=== PATIENT | male | born 1975 | race Asian ===

== ENCOUNTER 2017-10-31 20:41 | Emergency (ER) | payer OTHER ==
[~2017-10-31] VITALS: Ht 243.8 cm; Wt 81.6 kg
[2017-10-31] MEDS ORDERED: BUPROPION HCL150 M3 ORAL (20:55)
[2017-10-31] MEDS ORDERED: LORAZEPAM1 MG ORAL (20:55)
[2017-10-31] MEDS ORDERED: NORCO 5-325 TA1 EACH ORAL (20:55)
[2017-10-31] MEDS ORDERED: GABAPENTIN800 MG ORAL (20:55)
[2017-10-31] MEDS ORDERED: IBUPROFEN600 MG ORAL (20:55)
[2017-10-31] MEDS ORDERED: Bacitracin Oint UD TOPIC ONE (21:15)
[2017-10-31] MEDS ORDERED: BACITRACIN15 GM TOPIC (21:20)
[2017-10-31 21:31] VITALS: BP 123/79
[2017-10-31] MEDS ORDERED: TRIAMCINOLONE A60 M1 TP (21:33)
[2017-10-31 21:42] VITALS: BP 123/79
--- NOTE | 2017-10-31 22:26 | Emergency Room Report ---
History of Present Illness General Chief Complaint: Pain Source: Patient Present Illness HPI 42-year-old male presents ED for evaluation of blister. Patient states there is a large blister on his left foot. Has been there for many days. States that he "walks a lot". States that he walked here from [place]. Patient states that he could not get a ride to this area. States that he doesn't place to stay. Denies any fevers or chills. Denies any drainage. Pain is dull, 8 out of 10, nonradiating, worse with walking. No other aggravating relieving factors. Denies any other associated symptoms Allergies: Coded Allergies: CHLORPROMAZINE (Verified Allergy, Unknown, 10/31/17) HALOPERIDOL (Verified Allergy, Unknown, 10/31/17) Patient History Past Medical History: psych hx Past Surgical History: none Pertinent Family History: none Social History: Denies: smoking, alcohol use, drug use Immunizations: UTD Reviewed Nursing Documentation: PMH: Agreed; PSxH: Agreed Nursing Documentation-PMH Past Medical History: No History, Except For History Of Psychiatric Problem: Yes - bipolar, ADHD, anxiety depression Review of Systems All Other Systems: negative except mentioned in HPI Physical Exam Vital Signs Date Time Temp Pulse Resp B/P (MAP) Pulse Ox O2 Delivery O2 Flow Rate FiO2 10/31/17 20:48 98.3 103 18 123/79 98 Room Air 98.2 Sp02 EP Interpretation: reviewed, normal General Appearance: no apparent distress, alert, GCS 15, non-toxic Head: normocephalic, atraumatic Eyes: bilateral eye normal inspection, bilateral eye PERRL ENT: hearing grossly normal, normal pharynx, no angioedema, normal voice Neck: full range of motion, supple/symm/no masses Respiratory: chest non-tender, lungs clear, normal breath sounds, speaking full sentences Cardiovascular #1: regular rate, rhythm, no edema Cardiovascular #2: 2+ carotid (R), 2+ carotid (L), 2+ radial (R), 2+ radial (L) , 2+ dorsalis pedis (R), 2+ dorsalis pedis (L) Gastrointestinal: normal bowel sounds, non tender, soft, non-distended, no guarding, no rebound Rectal: deferred Genitourinary: normal inspection, no CVA tenderness Musculoskeletal: back normal, gait/station normal, normal range of motion, non- tender Neurologic: alert, oriented x3, responsive, motor strength/tone normal, sensory intact, speech normal Psychiatric: judgement/insight normal, memory normal, mood/affect normal, no suicidal/homicidal ideation Reflexes: 3+ bicep (R), 3+ bicep (L), 3+ tricep (R), 3+ tricep (L), 3+ knee (R) , 3+ knee (L) Skin: normal color, no rash, warm/dry, well hydrated, other - 1x1cm blister to base of L foot. no erythema/drainage Lymphatic: no adenopathy Medical Decision Making Diagnostic Impression: Primary Impression: Blister of foot Qualified Codes: S90.822A - Blister (nonthermal), left foot, initial encounter ER Course Hospital Course 42 yo M presents with blister to bottom of foot Differential diagnoses include: Cellulitis, dermatitis, insect bite, abscess Clinical course Patient placed on stretcher. After initial history, physical exam reveals a male in no acute distress. On exam there is a 1 x 1 cm blister to the bottom of the left foot. No erythema or discharge. No skin breakdown. Wound irrigated. Bacitracin and padded dressing applied. Patient safe for discharge. patient states he has a place to stay Diagnosis - blister of foot stable and discharged to home with prescription for bacitracin. Instructed to followup with PMD. Instructed return to ED if symptoms recur or worsen Last Vital Signs Date Time Temp Pulse Resp B/P (MAP) Pulse Ox O2 Delivery O2 Flow Rate FiO2 10/31/17 21:42 98.3 91 16 123/79 99 Room Air Status: improved Disposition: HOME, SELF-CARE Condition: Stable Scripts Triamcinolone Acetonide (TRIAMCINOLONE ACETONIDE) 60 Ml Lotion 60 ML TP BID, #60 ML Prov: Lenard Tyler MD 10/31/17 Bacitracin (Bacitracin) 28.4 Gm Oint...g. 1 APPLIC TOPIC THREE TIMES A DAY, #28.4 GM Prov: Lenard Tyler MD 10/31/17 Referrals: [facility]ERR[facility] (PCP) Patient Instructions: BlLenard Fuentes MD Oct 31, 2017 22:26
== END 2017-10-31 21:40 | disposition home or self-care (01) ==
LOC: EMR 21:15
DX: S90.822A Blister (nonthermal), left foot, initial encounter (principal); X58.XXXA Exposure to other specified factors, initial encounter; Y93.01 Activity, walking, marching and hiking; Y92.9 Unspecified place or not applicable
CPT/HCPCS: 99283